=== PATIENT | male | born 1975 | race Caucasian/White ===

== ENCOUNTER 2016-07-28 12:37 | Emergency (ER) | payer SELFPAY ==
[2016-07-28] MEDS: KETOROLAC TROMETHAMINE 60 MG/2 ML VIAL IM ONE (13:12)
[2016-07-28] MEDS ORDERED: KETOROLAC TROMETHAMINE 60 MG/2 ML VIAL ONE (13:12)
[2016-07-28 15:34] VITALS: BP 130/68
--- NOTE | 2016-07-28 15:41 | Diagnostic Imaging Report ---
CHEO SARKAR [facility] [address] Formerly [facility] [address] [id number] Report Submission Date: July 28, 2016 2:31:44 PM CDT Patient Study Name: JOSE ALFREDO KELLEY Date: July 28, 2016 1:16:29 PM CDT Modality Type: CR Gender: M Description: CHEST : 75 Institution: [facility] Physician: CHEO SARKAR Single view chest and 5 views the right ribs Clinical history: Fall, right rib pain Findings: The heart size is normal. No pneumothorax the lungs are clear. There is a nondisplaced right posterior 5th rib fracture. Otherwise, no rib fractures identified. Impression: Nondisplaced right posterior 5th rib fracture Electronically signed on July 28, 2016 2:31:44 PM CDT by: Jalen JACKSON
--- NOTE | 2016-07-29 13:07 | ED Physician Documentation ---
Chest Pain - HISTORIAN Historian: patient - HPI Stated Complaint: Right Rib Pain s/p Fall Chief Complaint: Chest Pain Additional Information: fell over log striking right ribs Onset: hours (1/2) Timing: sudden onset Duration: sudden-onset Last known Well Date: 07/28/16 Last Known Well Time: 12:00 Last known Well Code/Unknown Code: Unknown Context: activity Severity: severe Quality: sharp Chest Pain Radiation: no radiation Chest Pain Signs/Symptoms: other (none) Worsened By: deep breaths, movement Relieved By: nothing Further Comments: no - ROS CONST: none MS/LYMPH: none GI/: none EYES/ENT: none SKIN/ENDO: none - PAST HX CA risk factors: no pertinent history DVT/PE Risk Factors: none TAD/AAA risk factors: none Neuro deficit: none GI disease: none Lung disease: none Surgeries/Procedures: none Immunizations: referred to PCP Allergies/Adverse Reactions: Allergies Allergy/AdvReac Type Severity Reaction Status Date / Time No Known Allergies Allergy Verified 07/28/16 12:49 Home Medications: Ambulatory Orders Medication Instructions Recorded NK [NK] 03/28/15 - SOCIAL HX Smoking History: cigarettes Alcohol Use: occasionally Drug Use: none - FAMILY HX Family HX: none - VITAL SIGNS Vital Signs: Vital Signs Temp Pulse Resp BP Pulse Ox 98 F 82 18 130/68 99 07/28/16 12:40 07/28/16 15:32 07/28/16 15:32 07/28/16 15:32 07/28/16 15:32 - REVIEWED ASSESSMENTS Nursing Assessment Reviewed: Yes Vitals Reviewed: Yes Progress - Results/Orders Results/Orders: right ribs x-ray ordered - Progress Progress: pt. given percocet 5/325 1 p.o. in er Critical Care Note - Critical Care Note Total Time (mins): 0 ED Results Lab/Radiology - Lab Results Lab Results: none ordered - Radiology Radiology Impressions: right ribs x-ray positive for 5th rib posteriorly fx - Orders Orders: ED Orders Category Date Time Status RIBS UNILATERAL W/ PA CHEST [RAD] Routine Exams 07/28/16 Completed Ketorolac Tromethamine [Toradol] Med 07/28/16 13:12 Discontinued 60 mg .ROUTE .STK-MED ONE Ketorolac Tromethamine [Toradol] Med 07/28/16 13:11 Discontinued 60 mg IM NOW ONE Chest Pain Physical Exam - EXAM General Appearance: alert, moderate distress EENT: eye inspection normal, ENT inspection normal, pharynx normal, no signs of dehydration, SUYAPA, no nystagmus, TM's nml Neck: nml inspection, no carotid bruit Respiratory: no resp. distress, nml breath sounds, other (tenderness over upper post ribs) CVS: reg. rate & rhythm, no murmur, no gallop, no friction rub, pulses full, pulses equal Abdomen: soft, no organomegaly, normal bowel sounds, no abdominal bruit Skin: warm/dry, normal color Extremities: non-tender, normal range of motion, no evidence of injury Neuro: oriented X3, CN's nml as tested, motor nml, sensation nml, mood/affect nml Discharge Clincal Impression: Rib fracture Qualifiers: Encounter type: initial encounter Rib fracture type: single rib Fracture type: closed Laterality: right Qualified Code(s): S22.31XA - Fracture of one rib, right side, initial encounter for closed fracture Referrals: Primary Doctor,No [Primary Care Provider] - 2 Days Home Medications: Ambulatory Orders NK [NK] 03/28/15 Comments: discharged with script for percocet Condition: Stable Disposition: 01 HOME, SELF-CARE Decision to Admit: NO Decision Time: 15:30
== END 2016-07-28 15:32 | disposition home or self-care (01) ==
LOC: ED 12:37
DX: S22.31XA Fracture of one rib, right side, initial encounter for closed fracture (principal); W19.XXXA Unspecified fall, initial encounter; Y93.9 Activity, unspecified; Y99.9 Unspecified external cause status
CPT/HCPCS: 71101; J1885